=== PATIENT | female | born 1965 | race Caucasian/White ===

== ENCOUNTER 2022-10-16 17:35 | Inpatient (IN) | payer OTHER ==
[2022-10-16] MEDS ORDERED: SODIUM CHLORIDE 0.9% 500 ML INFUS.BAG IV ONE (18:23)
[2022-10-16] MEDS ORDERED: morphine SULFATE 4 MG/ML VIAL IVPUSH ONE (18:23)
[2022-10-16] MEDS ORDERED: morphine SULFATE 4 MG/ML VIAL ONE (18:54)
[2022-10-16 19:25] LABS: BASO % 0.6 % (0-2.0); EOS % 0.8 % (0-4.5); HEMATOCRIT 34.4 % (32.4-45.2); HEMOGLOBIN 11.3 GM/dL (10.7-15.3); LYMPH % 38.4 % (8-40); MCH 26.8 pg (25.7-33.7); MCHC 32.8 g/dl (32.0-36.0); MEAN CELL VOLUME 81.9 fl (80-96); MEAN PLT VOLUME 9.5 fl (7.5-11.1); NEUT % 48.2 % (42.8-82.8); PLATELET COUNT 351 10^3/uL (134-434); WHITE BLOOD COUNT 8.1 K/mm3 (4.0-10.0)
[2022-10-16 19:43] LABS: CALCIUM 9.5 mg/dL (8.5-10.1)
[2022-10-16 19:44] LABS: ALBUMIN 3.8 g/dl (3.4-5.0); BLOOD UREA NITROGEN 10.7 mg/dL (7-18)
[2022-10-16 19:46] LABS: CREATININE 0.9 mg/dL (0.55-1.3)
[2022-10-16 19:48] LABS: BILIRUBIN,TOTAL 0.2 mg/dL (0.2-1); TOT PROT 7.7 g/dl (6.4-8.2)
[2022-10-16 21:17] LABS: PH,URINE 8.5 (5.0-8.0); URINE APPEARANCE CLEAR; URINE BILIRUBIN NEGATIVE (NEGATIVE); URINE COLOR YELLOW; URINE GLUCOSE (UA) NEGATIVE (NEGATIVE); URINE KETONE NEGATIVE (NEGATIVE); URINE LEUK ESTERASE NEGATIVE (NEGATIVE); URINE NITRITE NEGATIVE (NEGATIVE); URINE PROTEIN NEGATIVE (NEGATIVE); URINE UROBILINOGEN 0.2 mg/dL (0.2-1.0)
[2022-10-17] MEDS ORDERED: VANCOMYCIN 1 GM in D5W (PRE-DOCKED) 1,000 MG/250 ML IVPB ONE (00:46)
[2022-10-17] MEDS ORDERED: FLUCONAZOLE 100 MG TABLET (UD) PO ONE ×2 (04:09→07:00)
[2022-10-17] MEDS ORDERED: NYSTATIN POWDER 100,000 UNITS/GM - 15 GM TOPICAL POWDER TP SCH (04:09)
[2022-10-17] MEDS ORDERED: ALBUTEROL SO4 HFA INHALER IH PRN (04:45)
[2022-10-17] MEDS: PIPERACILLIN/TAZOB 3.375 GM 3.375 GM in DEXTROSE 5%-WATER - 50 ML IVPB SCH ×3 (06:40→17:36)
[2022-10-17] MEDS: INSULIN SLIDING SCALE (NOVOLOG) 1 VIAL SQ SCH ×4 (06:46→21:42)
[2022-10-17] MEDS ORDERED: INSULIN (NOVOLOG) ASPART 100 UNITS/ML 10ML VIAL SQ SCH (07:00)
[2022-10-17 07:39] VITALS: BMI 21.9
[2022-10-17] MEDS: INSULIN (LEVEMIR) 100 UNITS/ML UNITS SQ SCH ×3 (08:25→21:41)
[2022-10-17] MEDS ORDERED: ESCITALOPRAM OXALATE 10 MG TABLET ONE (09:10)
[2022-10-17] MEDS: ENOXAPARIN NA (PORCINE) 40 MG/0.4 ML DISP.SYRIN SQ SCH (09:12)
[2022-10-17] MEDS: METOPROLOL TARTRATE 50 MG TABLET (FP) PO SCH ×2 (09:13→21:41)
[2022-10-17] MEDS: PANTOPRAZOLE 40 MG TABLET PO SCH (09:13)
[2022-10-17] MEDS: ASPIRIN 81 MG CHEWABLE TABLETS PO SCH (09:13)
[2022-10-17] MEDS: RANOLAZINE E.R. 500 MG TABLET (FP) PO SCH ×2 (09:13→21:40)
[2022-10-17] MEDS: ENALAPRIL MALEATE 2.5 MG TABLET PO SCH (09:14)
[2022-10-17] MEDS: POLYETHYLENE GLYCOL (HEALTHYLAX) 3350 17 GM PACKET PO SCH ×2 (09:14→21:40)
[2022-10-17] MEDS: TICAGRELOR 90 MG TABLET PO SCH ×2 (09:15→21:38)
[2022-10-17] MEDS: FENOFIBRIC ACID 135 MG CAP PO SCH (09:15)
[2022-10-17] MEDS: ESCITALOPRAM OXALATE 20 MG TABLET PO SCH (09:15)
[2022-10-17] MEDS: NYSTATIN POWDER 100,000 UNITS/GM - 15 GM TOPICAL POWDER TP SCH ×2 (09:17→22:16)
[2022-10-17 11:16] LABS: BASO % 0.3 % (0-2.0); EOS % 0.8 % (0-4.5); HEMATOCRIT 33.4 % (32.4-45.2); MEAN CELL VOLUME 81.7 fl (80-96); MEAN PLT VOLUME 9.7 fl (7.5-11.1); MONO % 11.2 % (3.8-10.2); NEUT % 59.7 % (42.8-82.8); PLATELET COUNT 378 10^3/uL (134-434); RBC 4.09 M/mm3 (3.60-5.2); RDW 15.3 % (11.6-15.6); WHITE BLOOD COUNT 9.2 K/mm3 (4.0-10.0)
[2022-10-17 11:42] LABS: CALCIUM 8.9 mg/dL (8.5-10.1)
[2022-10-17 11:43] LABS: ALBUMIN 3.6 g/dl (3.4-5.0); BLOOD UREA NITROGEN 10.6 mg/dL (7-18); MAGNESIUM 1.9 mg/dL (1.8-2.4)
[2022-10-17 11:46] LABS: BILIRUBIN,TOTAL 0.3 mg/dL (0.2-1); PHOSPHOROUS 3.6 mg/dL (2.5-4.9)
[2022-10-17 11:47] LABS: TOT PROT 7.4 g/dl (6.4-8.2)
[2022-10-17] MEDS ORDERED: INSULIN (LEVEMIR) 100 UNITS/ML UNITS SQ ONE (17:20)
[2022-10-17] MEDS ORDERED: INSULIN (NOVOLOG) ASPART 100 UNITS/ML 10ML VIAL ONE (17:21)
[2022-10-18] MEDS ORDERED: PIPERACILLIN/TAZOB 3.375 GM 3.375 GM in DEXTROSE 5%-WATER - 50 ML IVPB SCH (02:00)
[2022-10-18] MEDS ORDERED: PIPERACILLIN/TAZOB 3.375 GM 3.375 GM in DEXTROSE 5%-WATER - 50 ML IVPB ONE (03:00)
[2022-10-18] MEDS: INSULIN SLIDING SCALE (NOVOLOG) 1 VIAL SQ SCH ×4 (06:30→21:06)
[2022-10-18] MEDS: INSULIN (LEVEMIR) 100 UNITS/ML UNITS SQ SCH ×2 (06:31→21:05)
[2022-10-18] MEDS ORDERED: INSULIN (LEVEMIR) 100 UNITS/ML UNITS SQ SCH (07:00)
[2022-10-18] MEDS ORDERED: ESCITALOPRAM OXALATE 10 MG TABLET ONE (09:57)
[2022-10-18 09:59] LABS: BASO % 0.6 % (0-2.0); EOS % 1.5 % (0-4.5); HEMATOCRIT 32.6 % (32.4-45.2); LYMPH % 38.1 % (8-40); MCH 27.4 pg (25.7-33.7); MCHC 33.8 g/dl (32.0-36.0); MEAN CELL VOLUME 81.3 fl (80-96); MEAN PLT VOLUME 9.3 fl (7.5-11.1); MONO % 12.8 % (3.8-10.2); PLATELET COUNT 363 10^3/uL (134-434); RBC 4.01 M/mm3 (3.60-5.2); WHITE BLOOD COUNT 6.8 K/mm3 (4.0-10.0)
[2022-10-18] MEDS: PIPERACILLIN/TAZOB 3.375 GM 3.375 GM in DEXTROSE 5%-WATER - 50 ML IVPB SCH ×3 (10:03→21:04)
[2022-10-18 10:19] LABS: CALCIUM 9.3 mg/dL (8.5-10.1)
[2022-10-18 10:20] LABS: ALBUMIN 3.5 g/dl (3.4-5.0); BLOOD UREA NITROGEN 14.5 mg/dL (7-18); MAGNESIUM 2.2 mg/dL (1.8-2.4)
[2022-10-18 10:23] LABS: CREATININE 0.9 mg/dL (0.55-1.3); PHOSPHOROUS 3.2 mg/dL (2.5-4.9)
[2022-10-18] MEDS: RANOLAZINE E.R. 500 MG TABLET (FP) PO SCH ×2 (10:24→21:04)
[2022-10-18] MEDS: ESCITALOPRAM OXALATE 20 MG TABLET PO SCH (10:24)
[2022-10-18] MEDS: METOPROLOL TARTRATE 50 MG TABLET (FP) PO SCH ×2 (10:24→21:04)
[2022-10-18] MEDS: PANTOPRAZOLE 40 MG TABLET PO SCH (10:24)
[2022-10-18] MEDS: ASPIRIN 81 MG CHEWABLE TABLETS PO SCH (10:24)
[2022-10-18 10:25] LABS: BILIRUBIN,TOTAL 0.5 mg/dL (0.2-1); TOT PROT 7.5 g/dl (6.4-8.2)
[2022-10-18] MEDS: TICAGRELOR 90 MG TABLET PO SCH ×2 (10:25→21:05)
[2022-10-18] MEDS: FENOFIBRIC ACID 135 MG CAP PO SCH (10:25)
[2022-10-18] MEDS: ENOXAPARIN NA (PORCINE) 40 MG/0.4 ML DISP.SYRIN SQ SCH (10:25)
[2022-10-18] MEDS: POLYETHYLENE GLYCOL (HEALTHYLAX) 3350 17 GM PACKET PO SCH ×2 (10:25→21:05)
[2022-10-18] MEDS: ENALAPRIL MALEATE 2.5 MG TABLET PO SCH (10:25)
[2022-10-18] MEDS: NYSTATIN POWDER 100,000 UNITS/GM - 15 GM TOPICAL POWDER TP SCH ×2 (10:26→21:06)
[2022-10-18] MEDS ORDERED: ACETAMINOPHEN 500 MG TABLET (FP) PO PRN (11:24)
[2022-10-18] MEDS ORDERED: traMADol HCL 50 MG TABLET PO PRN (11:24)
[2022-10-19] MEDS: PIPERACILLIN/TAZOB 3.375 GM 3.375 GM in DEXTROSE 5%-WATER - 50 ML IVPB SCH ×4 (03:00→20:56)
[2022-10-19] MEDS: INSULIN SLIDING SCALE (NOVOLOG) 1 VIAL SQ SCH ×4 (06:24→21:17)
[2022-10-19] MEDS: INSULIN (LEVEMIR) 100 UNITS/ML UNITS SQ SCH ×2 (06:25→21:19)
[2022-10-19 10:31] LABS: BASO % 0.8 % (0-2.0); EOS % 1.1 % (0-4.5); HEMATOCRIT 32.5 % (32.4-45.2); HEMOGLOBIN 10.9 GM/dL (10.7-15.3); LYMPH % 32.8 % (8-40); MCH 27.2 pg (25.7-33.7); MCHC 33.5 g/dl (32.0-36.0); MEAN CELL VOLUME 81.2 fl (80-96); MEAN PLT VOLUME 9.4 fl (7.5-11.1); NEUT % 55.3 % (42.8-82.8); PLATELET COUNT 373 10^3/uL (134-434); RBC 4.01 M/mm3 (3.60-5.2); RDW 15.1 % (11.6-15.6); WHITE BLOOD COUNT 7.7 K/mm3 (4.0-10.0)
[2022-10-19] MEDS: ESCITALOPRAM OXALATE 20 MG TABLET PO SCH (10:47)
[2022-10-19] MEDS: ENALAPRIL MALEATE 2.5 MG TABLET PO SCH (10:47)
[2022-10-19] MEDS: TICAGRELOR 90 MG TABLET PO SCH ×2 (10:47→21:11)
[2022-10-19] MEDS: METOPROLOL TARTRATE 50 MG TABLET (FP) PO SCH ×2 (10:47→21:11)
[2022-10-19] MEDS: ASPIRIN 81 MG CHEWABLE TABLETS PO SCH (10:47)
[2022-10-19] MEDS: PANTOPRAZOLE 40 MG TABLET PO SCH (10:47)
[2022-10-19] MEDS: FENOFIBRIC ACID 135 MG CAP PO SCH (10:47)
[2022-10-19] MEDS: RANOLAZINE E.R. 500 MG TABLET (FP) PO SCH ×2 (10:47→21:12)
[2022-10-19] MEDS: ENOXAPARIN NA (PORCINE) 40 MG/0.4 ML DISP.SYRIN SQ SCH (10:47)
[2022-10-19] MEDS: NYSTATIN POWDER 100,000 UNITS/GM - 15 GM TOPICAL POWDER TP SCH (10:48)
[2022-10-19] MEDS: POLYETHYLENE GLYCOL (HEALTHYLAX) 3350 17 GM PACKET PO SCH ×2 (10:50→21:12)
[2022-10-19 10:59] LABS: ALBUMIN 3.3 g/dl (3.4-5.0); CALCIUM 8.9 mg/dL (8.5-10.1)
[2022-10-19 11:03] LABS: BILIRUBIN,TOTAL 0.3 mg/dL (0.2-1)
[2022-10-19 11:04] LABS: TOT PROT 7.3 g/dl (6.4-8.2)
[2022-10-19] MEDS ORDERED: INSULIN (LEVEMIR) 100 UNITS/ML UNITS SQ SCH (12:55)
[2022-10-19] MEDS: INSULIN (NOVOLOG MIX 70/30) 100 UNITS/ML MDV SQ SCH (16:55)
[2022-10-20] MEDS: PIPERACILLIN/TAZOB 3.375 GM 3.375 GM in DEXTROSE 5%-WATER - 50 ML IVPB SCH ×4 (04:00→20:22)
[2022-10-20] MEDS: INSULIN (NOVOLOG MIX 70/30) 100 UNITS/ML MDV SQ SCH ×3 (06:59→17:23)
[2022-10-20] MEDS: INSULIN SLIDING SCALE (NOVOLOG) 1 VIAL SQ SCH ×4 (07:00→22:35)
[2022-10-20] MEDS: NYSTATIN POWDER 100,000 UNITS/GM - 15 GM TOPICAL POWDER TP SCH ×3 (07:12→22:41)
[2022-10-20] MEDS ORDERED: ESCITALOPRAM OXALATE 10 MG TABLET ONE (10:13)
[2022-10-20 10:24] LABS: CALCIUM 9.6 mg/dL (8.5-10.1)
[2022-10-20 10:25] LABS: BLOOD UREA NITROGEN 16.6 mg/dL (7-18)
[2022-10-20] MEDS: POLYETHYLENE GLYCOL (HEALTHYLAX) 3350 17 GM PACKET PO SCH ×2 (10:42→22:34)
[2022-10-20] MEDS: ASPIRIN 81 MG CHEWABLE TABLETS PO SCH (10:43)
[2022-10-20] MEDS: RANOLAZINE E.R. 500 MG TABLET (FP) PO SCH ×2 (10:43→22:34)
[2022-10-20] MEDS: ENOXAPARIN NA (PORCINE) 40 MG/0.4 ML DISP.SYRIN SQ SCH (10:43)
[2022-10-20] MEDS: METOPROLOL TARTRATE 50 MG TABLET (FP) PO SCH ×2 (10:43→22:34)
[2022-10-20] MEDS: PANTOPRAZOLE 40 MG TABLET PO SCH (10:44)
[2022-10-20] MEDS: ESCITALOPRAM OXALATE 20 MG TABLET PO SCH (10:44)
[2022-10-20] MEDS: FENOFIBRIC ACID 135 MG CAP PO SCH (10:46)
[2022-10-20] MEDS: TICAGRELOR 90 MG TABLET PO SCH ×2 (10:46→23:31)
[2022-10-20] MEDS: ENALAPRIL MALEATE 2.5 MG TABLET PO SCH (10:47)
[2022-10-20] MEDS: INSULIN (LEVEMIR) 100 UNITS/ML UNITS SQ SCH ×2 (11:21→22:35)
[2022-10-20] MEDS: ACETAMINOPHEN 500 MG TABLET (FP) PO PRN (22:33)
[2022-10-21] MEDS: PIPERACILLIN/TAZOB 3.375 GM 3.375 GM in DEXTROSE 5%-WATER - 50 ML IVPB SCH ×4 (04:00→21:36)
[2022-10-21] MEDS: INSULIN (NOVOLOG) ASPART 100 UNITS/ML 10ML VIAL SQ SCH ×3 (06:31→17:04)
[2022-10-21] MEDS: INSULIN SLIDING SCALE (NOVOLOG) 1 VIAL SQ SCH ×4 (06:32→22:14)
[2022-10-21] MEDS ORDERED: ESCITALOPRAM OXALATE 10 MG TABLET ONE (09:51)
[2022-10-21] MEDS: ASPIRIN 81 MG CHEWABLE TABLETS PO SCH (11:08)
[2022-10-21] MEDS: ENALAPRIL MALEATE 2.5 MG TABLET PO SCH (11:09)
[2022-10-21] MEDS: ESCITALOPRAM OXALATE 20 MG TABLET PO SCH (11:09)
[2022-10-21] MEDS: POLYETHYLENE GLYCOL (HEALTHYLAX) 3350 17 GM PACKET PO SCH ×2 (11:09→21:34)
[2022-10-21] MEDS: RANOLAZINE E.R. 500 MG TABLET (FP) PO SCH ×2 (11:09→21:35)
[2022-10-21] MEDS: FENOFIBRIC ACID 135 MG CAP PO SCH (11:10)
[2022-10-21] MEDS: NYSTATIN POWDER 100,000 UNITS/GM - 15 GM TOPICAL POWDER TP SCH ×3 (11:10→22:31)
[2022-10-21] MEDS: ENOXAPARIN NA (PORCINE) 40 MG/0.4 ML DISP.SYRIN SQ SCH (11:10)
[2022-10-21] MEDS: PANTOPRAZOLE 40 MG TABLET PO SCH (11:11)
[2022-10-21] MEDS: METOPROLOL TARTRATE 50 MG TABLET (FP) PO SCH ×2 (11:11→21:35)
[2022-10-21] MEDS: INSULIN (LEVEMIR) 100 UNITS/ML UNITS SQ SCH ×2 (11:18→22:16)
[2022-10-21] MEDS: TICAGRELOR 90 MG TABLET PO SCH ×2 (13:18→21:35)
[2022-10-21] MEDS ORDERED: ONDANSETRON 4 MG/2 ML VIAL IVPUSH ONE (15:45)
[2022-10-21] MEDS: METOCLOPRAMIDE HCL 10 MG TABLET (FP) PO SCH ×2 (17:05→21:35)
[2022-10-21] MEDS ORDERED: INSULIN (NOVOLOG) ASPART 100 UNITS/ML 10ML VIAL ONE (21:05)
[2022-10-21] MEDS: ACETAMINOPHEN 500 MG TABLET (FP) PO PRN (22:10)
[2022-10-22] MEDS: PIPERACILLIN/TAZOB 3.375 GM 3.375 GM in DEXTROSE 5%-WATER - 50 ML IVPB SCH ×3 (02:24→14:26)
[2022-10-22 06:11] VITALS: RESP 18
[2022-10-22] MEDS: INSULIN SLIDING SCALE (NOVOLOG) 1 VIAL SQ SCH ×3 (06:25→17:26)
[2022-10-22] MEDS: METOCLOPRAMIDE HCL 10 MG TABLET (FP) PO SCH ×3 (06:26→17:28)
[2022-10-22] MEDS: INSULIN (NOVOLOG) ASPART 100 UNITS/ML 10ML VIAL SQ SCH ×4 (06:26→17:26)
[2022-10-22 09:51] LABS: ALBUMIN 3.4 g/dl (3.4-5.0); BLOOD UREA NITROGEN 16.4 mg/dL (7-18); CALCIUM 9.1 mg/dL (8.5-10.1)
[2022-10-22 09:54] LABS: CREATININE 1.1 mg/dL (0.55-1.3)
[2022-10-22 09:56] LABS: BILIRUBIN,TOTAL 0.3 mg/dL (0.2-1); TOT PROT 7.5 g/dl (6.4-8.2)
[2022-10-22] MEDS ORDERED: ESCITALOPRAM OXALATE 10 MG TABLET ONE (10:18)
[2022-10-22] MEDS: INSULIN (LEVEMIR) 100 UNITS/ML UNITS SQ SCH (10:43)
[2022-10-22] MEDS: METOPROLOL TARTRATE 50 MG TABLET (FP) PO SCH (10:46)
[2022-10-22] MEDS: FENOFIBRIC ACID 135 MG CAP PO SCH (10:46)
[2022-10-22] MEDS: RANOLAZINE E.R. 500 MG TABLET (FP) PO SCH (10:46)
[2022-10-22] MEDS: ASPIRIN 81 MG CHEWABLE TABLETS PO SCH (10:46)
[2022-10-22] MEDS: PANTOPRAZOLE 40 MG TABLET PO SCH (10:46)
[2022-10-22] MEDS: ENOXAPARIN NA (PORCINE) 40 MG/0.4 ML DISP.SYRIN SQ SCH ×2 (10:46→11:15)
[2022-10-22] MEDS: ENALAPRIL MALEATE 2.5 MG TABLET PO SCH (10:46)
[2022-10-22] MEDS: ESCITALOPRAM OXALATE 20 MG TABLET PO SCH (10:46)
[2022-10-22] MEDS: TICAGRELOR 90 MG TABLET PO SCH (10:46)
[2022-10-22] MEDS: POLYETHYLENE GLYCOL (HEALTHYLAX) 3350 17 GM PACKET PO SCH (10:49)
[2022-10-22] MEDS: NYSTATIN POWDER 100,000 UNITS/GM - 15 GM TOPICAL POWDER TP SCH (10:50)
[2022-10-22 13:57] VITALS: BP 109/65; PULSE 71; TEMP 98.3
== END 2022-10-22 16:37 | disposition home or self-care (01) | DRG 531 ==
LOC: JER 17:35 → JERBED 10-17 → J6S 10-17 04:45
PROVIDERS: ADMIT Internal Medicine; ATTEND Internal Medicine
DX: N73.2 Unspecified parametritis and pelvic cellulitis (principal); I10 Essential (primary) hypertension; E78.5 Hyperlipidemia, unspecified; I25.10 Atherosclerotic heart disease of native coronary artery without angina pectoris; I25.2 Old myocardial infarction; N73.9 Female pelvic inflammatory disease, unspecified; L08.9 Local infection of the skin and subcutaneous tissue, unspecified; K29.70 Gastritis, unspecified, without bleeding; E11.65 Type 2 diabetes mellitus with hyperglycemia; K59.00 Constipation, unspecified; M54.9 Dorsalgia, unspecified; R68.81 Early satiety; E11.43 Type 2 diabetes mellitus with diabetic autonomic (poly)neuropathy; K31.84 Gastroparesis; R14.0 Abdominal distension (gaseous); R11.10 Vomiting, unspecified; Z95.5 Presence of coronary angioplasty implant and graft
CPT/HCPCS: 36415; 74018-TC-FY; 74177-TC; 76830-TC; 80048; 80053; 81003; 82962; 83036; 83605; 83690; 83735; 84100; 85025; 85651; 86140; 87040; 87086; 93005; 93010; 99285-25; C9803-CS; Q9967; U0003; U0005

== ENCOUNTER 2022-12-13 04:51 | Day surgery (SDC) | payer OTHER ==
[2022-12-09 16:21] VITALS: BMI 20.9
[2022-12-13 13:54] VITALS: TEMP 97.8
[2022-12-13 14:52] VITALS: BP 136/68; PULSE 62; RESP 13
== END 2022-12-13 14:52 | disposition home or self-care (01) ==
LOC: JASU-ENDO 04:51
PROVIDERS: ATTEND Student in an Organized Health Care Education/Training Program
PROC: 0DB78ZX Excision of Stomach, Pylorus, Via Natural or Artificial Opening Endoscopic, Diagnostic (ICD-10-PCS; 2022-12-13)
PROC: 0DB68ZX Excision of Stomach, Via Natural or Artificial Opening Endoscopic, Diagnostic (ICD-10-PCS; 2022-12-13)
PROC: 0DB28ZX Excision of Middle Esophagus, Via Natural or Artificial Opening Endoscopic, Diagnostic (ICD-10-PCS; 2022-12-13)
PROC: 0DB38ZX Excision of Lower Esophagus, Via Natural or Artificial Opening Endoscopic, Diagnostic (ICD-10-PCS; principal; 2022-12-13 12:30)
DX: K21.00 Gastro-esophageal reflux disease with esophagitis, without bleeding (principal); K29.50 Unspecified chronic gastritis without bleeding; I10 Essential (primary) hypertension; E11.9 Type 2 diabetes mellitus without complications; Z79.84 Long term (current) use of oral hypoglycemic drugs
CPT/HCPCS: 82962; 88305-TC; 88342-TC

== ENCOUNTER → 2023-01-03 | Day surgery (SDC) | payer OTHER ==
[2022-12-30 13:53] VITALS: BMI 23.2
[2023-01-03 13:53] VITALS: TEMP 98
[2023-01-03 14:17] VITALS: RESP 14
[2023-01-03 15:08] VITALS: BP 136/66; PULSE 74
== END | disposition home or self-care (01) ==
LOC: JASU-ENDO 04:40
PROVIDERS: ATTEND Student in an Organized Health Care Education/Training Program
PROC: 0DBP8ZX Excision of Rectum, Via Natural or Artificial Opening Endoscopic, Diagnostic (ICD-10-PCS; principal; 2023-01-03 13:00)
DX: D12.8 Benign neoplasm of rectum (principal)
CPT/HCPCS: 82962; 88305-TC